=== PATIENT | male | born 1975 | race Caucasian/White ===

== ENCOUNTER 2016-06-20 10:28 | Emergency (ER) | payer OTHER, MEDICARE ==
[~2016-06-20] VITALS: Ht 170.2 cm; Wt 114.8 kg
[~2016-06-20 10:28] MED LIST: CARBAMAZEPINE300 M1 PO; CIPRO500 M1 PO; CUTIVATE30 GM TOP; ENDOCET 325 MG-1 TA1 PO; IBUPROFEN600 M1 PO; MOBIC15 MG PO; PERCOCET 5-3251 EACH PO; ROBAXIN-750750 MG PO
[2016-06-20 10:31] VITALS: BP 132/84
--- NOTE | 2016-06-20 11:42 | ED NECK/BACK PAIN COMPLAINT ---
History of Present Illness General Chief Complaint: Low Back Pain/Injury Stated Complaint: LOW BACK PAIN Source: patient Exam Limitations: no limitations Vital Signs & Intake/Output Vital Signs & Intake/Output Vital Signs Date Time Temp Pulse Resp B/P B/P Pulse O2 O2 Flow FiO2 Mean Ox Delivery Rate 06/20 1031 97.5 97 20 132/84 98 Room Air Allergies Coded Allergies: Sulfa (Sulfonamide Antibiotics) (Severe, RASH 11/13/15) Reconcile Medications Meloxicam (Mobic) 15 MG TABLET 1 TAB PO DAILY PRN INFLAMMATION Oxycodone HCl/Acetaminophen (Percocet 5-325 MG Tablet) 5 MG-325 MG TABLET 1 TAB PO TID PRN PAIN Triage Note: PT TO ED C/O LOW BACK PAIN SINCE THIS AM. 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 Triage Nurses Notes Reviewed? yes Onset: Abrupt Duration: constant Timing: single episode today Location: paraspinous muscles Radiation: none HPI: Patient is a 41-year-old male who presents emergency and that earlier today while bending over patient stood up and had acute onset of bilateral paralumbar muscular point tenderness and back pain. Patient did not take any medications for symptoms. Patient denies any lower extremity paresthesia weakness or pain denies any saddle paresthesia or bowel bladder incontinence. Patient states that once he year this occurs when he states he gets better in a few days. (BAILEY MORRISON) Past History Travel History Traveled to [place] past 21 day No Medical History Any Pertinent Medical History? 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 No (BAILEY MORRISON) Review of Systems Review of Systems Constitutional: Reports: no symptoms. Eyes: Reports: no symptoms. Ears, Nose, Throat, Mouth: Reports: no symptoms. Respiratory: Reports: no symptoms. Cardiovascular: Reports: no symptoms. Gastrointestinal/Abdominal: Reports: no symptoms. Musculoskeletal: Reports: see HPI, back pain, muscle pain, muscle stiffness. Skin: Reports: no symptoms. Neurological/Psychological: Reports: no symptoms. All Other Systems: Reviewed and Negative (BAILEY MORRISON) Physical Exam Physical Exam General Appearance: mild distress Neck: normal inspection, supple, full range of motion Comments: HEENT: Normal EENT exam, Neck: Supple, no lymphadenopathy, normal range of motion without pain or tenderness Back: Normal inspection decreased active range of motion noted no central spinous tenderness bilateral paralumbar muscular point tenderness noted Cardiovascular: Regular rate and rhythms no murmurs rubs or gallops, normal JVP Respiratory: Chest nontender. No respiratory distress.breath sounds clear to auscultation bilaterally Abdomen: Soft, nontender nondistended, no appreciable organomegaly. Normal bowel sounds. No ascites Extremity: No edema, no calf tenderness to palpation, normal and equal pulses. Bilateral lower extremity myotomes dermatomes intact DTRs intact Neuro: Alert oriented x3, motor sensory normal, Skin: No appreciable rash on exposed skin, skin is warm and dry. Psych: Mood and affect is normal, memory and judgment is normal. (BAILEY MORRISON) Progress Differential Diagnosis: AAA, aortic dissection, C spine injury, carotid dissection, cauda equina syn, herniated disc, myofascial strain, pyelo/UTI, sciatica, spinal cord inj, thoracic outlet syn, T/L spine injury, ureterolithiasis Plan of Care: Patient has no central spinous tenderness no CUADA EQUINA symptoms lower extremity was neurovascularly intact PATIENT WILL BE TREATED FOR LOW BACK MUSCULAR STRAIN (BAILEY MORRISON) Departure Departure Disposition: HOME OR SELF CARE Condition: Stable Clinical Impression Primary Impression: Low back strain Referrals: ROBIN WILKERSON MD (PCP/Family) Additional Instructions: As discussed begin icing the area directly 20 minutes every 2 hours. Begin the prescription meloxicam for pain and inflammation. Begin the prescription of Percocet for breakthrough pain only. Prescriptions waiting a [facility] pharmacy. If symptoms worsen return to emergency room. If no better on Saturday follow-up with primary care doctor. Activity as tolerated Departure Forms: Customer Survey General Discharge Information Prescriptions: Current Visit Scripts Oxycodone HCl/Acetaminophen (Percocet 5-325 MG Tablet) 1 TAB PO TID PRN PAIN #10 TAB Meloxicam (Mobic) 1 TAB PO DAILY PRN INFLAMMATION #15 TAB (BAILEY MORRISON) PA/ELECTRO MECHANICAL SOLAR TECHNICIAN Co-Sign Statement Statement: ED Attending supervision documentation- [] I saw and evaluated the patient. I have also reviewed all the pertinent lab results and diagnostic results. I agree with the findings and the plan of care as documented in the PA's/ELECTRO MECHANICAL SOLAR TECHNICIAN's documentation. x I have reviewed the ED Record and agree with the PA's/ELECTRO MECHANICAL SOLAR TECHNICIAN's documentation. [] Additions or exceptions (if any) to the PAs/ELECTRO MECHANICAL SOLAR TECHNICIAN's note and plan are summarized below: [] (QUIRINO HELM,ARMAAN)
[2016-06-20] MEDS ORDERED: PERCOCET 5-3251 EACH PO (11:52)
[2016-06-20] MEDS ORDERED: MOBIC15 M1 PO (11:52)
== END 2016-06-20 12:15 ==
LOC: ERH 10:28
DX: S39.012A Strain of muscle, fascia and tendon of lower back, initial encounter (principal); X58.XXXA Exposure to other specified factors, initial encounter; Y92.9 Unspecified place or not applicable; Y93.9 Activity, unspecified